=== PATIENT | male | born 1995 | race Caucasian/White ===

== ENCOUNTER 2017-04-28 17:46 | Emergency (ER) | payer OTHER ==
[~2017-04-28] VITALS: Ht 185.4 cm; Wt 81.7 kg
== END 2017-04-28 19:33 | disposition home or self-care (01) ==
LOC: ER 17:46
DX: S61.201A Unspecified open wound of left index finger without damage to nail, initial encounter (principal); W25.XXXA Contact with sharp glass, initial encounter; Y99.0 Civilian activity done for income or pay
CPT/HCPCS: 12001; 90471; 90714; 99283